=== PATIENT | female | born 1955 | race Caucasian/White ===

== ENCOUNTER 2016-11-04 12:00 | Emergency (ER) | payer MEDICAID ==
[~2016-11-04] VITALS: Ht 162.6 cm; Wt 74.0 kg
[2016-11-04 12:08] VITALS: Ht 162.6 cm; Wt 74.0 kg
[2016-11-04] MEDS ORDERED: LORAZEPAM 2 MG INJ IV ONE (14:00)
--- NOTE | 2016-11-04 14:06 | RADRPT ---
PROCEDURE: Chest Radiograph. CLINICAL INDICATION: Chest pain TECHNIQUE: Single frontal chest radiograph. COMPARISON: None available FINDINGS: The cardiomediastinal silhouette is within normal limits. Lung volumes are decreased in there is le ft greater than right basilar atelectasis. A superimposed left basilar infiltrate could be present, though is unlikely . No pleural effusion is identified. The bones are intact. IMPRESSION: 1. Low lung volumes with basilar atelectasis. 2. Questionable superimposed left pleural effusion. RPTAT: KK .Stfe Avalos MD, MD Date Time Electronically viewed and signed by .Stef Avalos MD, on 11/04/2016 14:06 .B/
[2016-11-04 14:18] LABS: BASOPHILS % 0.4 % (0.0-2.0); EOSINOPHILS # 0.1 10^3/ul (0.0-0.5); EOSINOPHILS % 0.7 % (0.0-7.0); HEMATOCRIT 39.1 % (37.0-47.0); HEMOGLOBIN 13.6 g/dl (12.0-16.0); LYMPHOCYTES % 41.9 % (15.0-51.0); MEAN CORPUSCULAR HEMOGLOBIN 30.4 pg (29.0-33.0); MEAN CORPUSCULAR HGB CONC 34.8 g/dl (32.0-37.0); MEAN CORPUSCULAR VOLUME 87.3 fl (82.0-101.0); MEAN PLATELET VOLUME 9.7 fl (7.4-10.4); MONOCYTE # 0.6 10^3/ul (0.3-0.9); MONOCYTES % 7.6 % (0.0-11.0); NEUTROPHILS % 49.3 % (39.0-77.0); PLATELET COUNT 266 10^3/UL (140-415); RED BLOOD COUNT 4.48 10^6/ul (4.20-5.40); RED CELL DISTRIBUTION WIDTH 12.4 % (11.5-14.5); WHITE BLOOD COUNT 7.2 10^3/ul (4.8-10.8)
[2016-11-04 14:46] LABS: ANION GAP 14 (8-16); BLOOD UREA NITROGEN 14 mg/dl (7-20); CALCIUM 9.1 mg/dl (8.4-10.2); CARBON DIOXIDE 24 mmol/L (21-31); CHLORIDE 108 mmol/L (97-110); CREATININE 0.73 mg/dl (0.44-1.00); GLUCOSE 112 mg/dl (70-220); POTASSIUM 3.9 mmol/L (3.5-5.1); SODIUM 142 mmol/L (135-144)
[2016-11-04] MEDS ORDERED: LEVO25TA53 PO (14:49)
[2016-11-04 15:06] LABS: TROPONIN-I < 0.012 ng/ml (0.00-0.12)
[2016-11-04] MEDS ORDERED: LORA1TAB PO (15:10)
--- NOTE | 2016-11-04 15:20 | ERD ---
ER Documentation Chief Complaint Date/Time DATE: 11/04/16 TIME: 15:18 Chief Complaint shortness of breath with left shoulder pain HPI This is a 61-year-old female no significant past medical history presents with multiple complaints including chest pain and shortness of breath. She states that she woke up this morning and had substernal chest pain and pressure with associated shortness of breath. She also describes chronic left shoulder pain for several months. She is scheduled for an outpatient MRI of the left shoulder and neck. The patient states that she has had this chest pain and shortness of breath when she has become anxious before. She does note significant social stressors over the past 24 hours. She states this feels similar but slightly more severe. Chest pain is nonexertional no fevers chills or cough. No pleuritic pain. ROS All systems reviewed and are negative except as per history of present illness. Medications Home Meds Active Scripts Lorazepam* (Lorazepam*) 1 Mg Tablet, 1 MG PO Q8H Y for ANXIETY, #8 TAB Prov:ELZA OREILLY MD 11/04/16 Reported Medications Levothyroxine Sodium* (Levothyroxine Sodium*) 25 Mcg Tablet, 25 MCG PO BEFORE BREAKFAST, #30 TAB 11/04/16 Allergies Allergies: Coded Allergies: No Known Allergy (Unverified , 11/04/16) PMhx/Soc Hx Miscellaneous Medical Probl: Yes (HYPOTHYROID) Hx Alcohol Use: No Hx Substance Use: No Hx Tobacco Use: No Smoking Status: Never smoker FmHx Family History: No diabetes Physical Exam Vitals Vital Signs Date Time Temp Pulse Resp B/P Pulse Ox O2 Delivery O2 Flow Rate FiO2 11/04/16 14:00 Nasal Cannula 2 11/04/16 12:08 98.1 88 18 159/78 98 Physical Exam General: Well developed, well nourished, no acute distress Head: Normocephalic, atraumatic. Eyes: Pupils equally reactive, EOM intact ENT: Moist mucous membranes Neck: Supple, no lymphadenopathy Respiratory: Lungs clear bilaterally, no distress Cardiovascular: RRR, no murmurs, rubs, or gallops Abdominal: Soft, non-tender, non-distended, no peritoneal signs : Deferred MSK: No edema, no unilateral swelling, 5/5 strength Neurologic: Alert and oriented, moving all extremities, normal speech, no focal weakness, no cerebellar signs Skin: No rash Psych: Normal mood Result Diagram: 11/04/16 1355 11/04/16 1355 Results 24 hrs Laboratory Tests Test 11/04/16 13:55 White Blood Count 7.210^3/ul Red Blood Count 4.4810^6/ul Hemoglobin 13.6g/dl Hematocrit 39.1% Mean Corpuscular Volume 87.3fl Mean Corpuscular Hemoglobin 30.4pg Mean Corpuscular Hemoglobin Concent 34.8g/dl Red Cell Distribution Width 12.4% Platelet Count 07561^3/UL Mean Platelet Volume 9.7fl Neutrophils % 49.3% Lymphocytes % 41.9% Monocytes % 7.6% Eosinophils % 0.7% Basophils % 0.4% Nucleated Red Blood Cells % 0.0/100WBC Neutrophils # (Manual) 3.610^3/ul Lymphocytes # 3.010^3/ul Monocytes # 0.610^3/ul Eosinophils # 0.110^3/ul Basophils # 0.010^3/ul Nucleated Red Blood Cells # 0.010^3/ul Sodium Level 142mmol/L Potassium Level 3.9mmol/L Chloride Level 108mmol/L Carbon Dioxide Level 24mmol/L Anion Gap 14 Blood Urea Nitrogen 14mg/dl Creatinine 0.73mg/dl Glucose Level 112mg/dl Calcium Level 9.1mg/dl Troponin I < 0.012ng/ml Current Medications Medications (Trade) Dose Ordered Sig/Kasia Route PRN Reason Start Time Stop Time Status Last Admin Dose Admin Lorazepam (Ativan) 1 mg ONCE ONCE IV 11/04/16 14:00 11/04/16 14:01 DC 11/04/16 13:59 Procedures/MDM EKG, MONITORS, & DIAGNOSTIC IMAGING: EKG: I reviewed and interpreted a 12-lead EKG. Rhythm: Normal sinus rhythm Ectopy: None Intervals: No abnormalities ST segments: No elevations or depressions T waves: No contiguous inversions Chest x-ray: I reviewed and interpreted a 1 view of the chest Mediastinum: No enlargement Cardiac silhouette: No cardiomegaly Airspace: Clear lung rose bilaterally without evidence of pneumothorax Bones: No evidence of fracture LAB INTERPRETATION: Negative troponin MEDICAL DECISION MAKING: The patient's history, physical exam and clinical presentation is most consistent with likely anxiety reaction. The patient describes very similar symptoms when she is anxious. She describes social stressors. She has no exertional symptoms and no signs or symptoms concerning for cardiac etiology. The patient's shoulder pain is chronic and not suggestive of dissection. Based on the patient's clinical exam and history and risk factors, I have a much lower clinical concern for pulmonary embolism, acute aortic dissection, pneumothorax, pneumonia, cardiac tamponade HEART Score: Less than 3 MACE Rate: Less than 1.9% Shared Decision Making: We had a conversation regarding risk stratification, MACE rate, and the risks, benefits, alternatives of disposition planning options. Disposition planning: Given that the patient is a better alternative diagnosis I do not believe this is cardiac in nature and feel that outpatient follow-up would be appropriate. ER COURSE: The patient continues to be resting comfortably. She received 1 mg of Ativan and is resting. When she wakes up her symptoms are improved. At this time I feel the patient can be safely discharged home with follow-up with primary care physician. We did discuss return precautions including worsening symptoms, exertional symptoms. I kept the patient and/or family informed of laboratory and diagnostic imaging results throughout the emergency room course. DISPOSITION PLAN: We discussed follow up with the patient's primary care doctor within 24 to 48 hours as needed. We also discussed return to the emergency room for worsening symptoms or worsening condition. Outpatient referral: [None required] Discharge Medications: Ativan 1 mg a total of 8 tablets Departure Diagnosis: Primary Impression: Anxiety reaction Additional Impression: Chest pain Chest pain type: unspecified Qualified Code: R07.9 - Chest pain, unspecified type Condition: Stable Patient Instructions: Anxiety Reaction, Chest Pain, Uncertain Cause Additional Instructions: Call your primary care doctor TOMORROW for an appointment during the next 1 WEEK.Tell the cupola patcher that you were referred from this facility.See the doctor sooner or return here if your condition worsens before your appointment time. ELZA OREILLY MD Nov 04, 2016 15:20
== END 2016-11-04 16:52 | disposition home or self-care (01) ==
LOC: E/R 12:00
DX: F41.1 Generalized anxiety disorder (principal); R07.2 Precordial pain
CPT/HCPCS: 36415; 71010; 80048; 84484; 85025; 93005; 96374; J2060; Z7502